=== PATIENT | female | born 1990 | race African-American/Black ===

== ENCOUNTER → 2016-03-02 | Outpatient (CLI) | payer MEDICAID ==
[~2016-03-02] MED LIST: FERR325T PO; INFL1INJ56 IM; LANC1MIS74; ONETKIT; PREN1TAB20 PO; TETA1INJ6 IM
== END ==
LOC: HPND 08:22
PROVIDERS: ATTEND Family Medicine
DX: O26.849 Uterine size-date discrepancy, unspecified trimester (principal); Z3A.00 Weeks of gestation of pregnancy not specified
CPT/HCPCS: 76816

== ENCOUNTER 2016-05-03 22:25 | Emergency (ER) | payer MEDICAID ==
[~2016-05-03] VITALS: Ht 157.5 cm; Wt 86.0 kg
[~2016-05-03 22:25] MED LIST changes: -FERR325T PO; -INFL1INJ56 IM; -LANC1MIS74; -ONETKIT; -TETA1INJ6 IM
[2016-05-03 23:42] LABS: BLOOD, URINE NEG (NEG); COMMENT (UR) CULT NOT INDICATED; CULTURE IF INDICATED CULT NOT INDICATED; GLUCOSE,URINE NEG (NEG); KETONE, URINE NEG (NEG); MUCUS URINE FEW /lpf (OCC); NITRITE,URINE NEG (NEG); PH, URINE 6.5 (5.0-8.5); SQUAMOUS EPITHELIAL CELL URINE 9 /hpf (0-5); URINE COLOR YELLOW (YELLW/STRAW)
--- NOTE | 2016-05-03 23:44 | PD ---
HPI Chief Complaint Left facial pain, bilateral lower extremity numbness, chest pain Date Seen: May 03, 2016 Time Seen: 23:10 (Irina Grey MD R1) Travel History International Travel<30 Days: No Contact w/Intl Traveler<30Days: No Known Affected Area: No (Irina Grey MD R1) History of Present Illness HPI 26 y/o at 33 weeks gestation presents to the [facility] with a chief complaint of left facial pain, bilateral extremity numbness, chest pain, and shortness of breath of 1.5 hour duration. The pt says that she was doing well until this evening when all these symptoms began. She also vomited small amounts of fluid about 2-3 times around the same time. She thinks that her symptoms are related to Tylenol that she took earlier today. She swallowed about 5 Tylenol tablets but is not sure how many milligrams total. She did see some fluid in her underwear and was concerned that something was wrong with the baby. She has felt occasional contractions but they are not regularly or evenly- spaced. She denies gush of fluid and vaginal bleeding. She endorses positive movement. (Irina Grey MD R1) History Past Medical History Medical History: Denies Significant Hx (Irina Grey MD R1) Past Surgical History Surgical History: No Previous Surgery (Irina Grey MD) Family History Family History: Negative (Irina Grey MD R1) Social History Alcohol Use: No Tobacco Use: No Substance Abuse: No (Irina Grey MD R1) Allergies-Medications (Allergen,Severity, Reaction): Coded Allergies: No Known Allergies (Unverified , 04/23/16) Home Meds Active Scripts W/O Vit A W/ Fe Carbonyl (Citranatal Rx)27-1 Mg Tab1 Tab PO DAILY #30 TAB Ref 5 Prov:Irina Grey MD R1 02/27/16 Review of Systems General / Constitutional: No: Fever, Chills Eyes: Visual changes HENT: No: Headaches Cardiovascular: Chest Pain or Discomfort Respiratory: Short of Breath Neurologic: Weakness (Irina Grey MD R1) Physical Exam Narrative GENERAL: Well-nourished, well-developed patient. SKIN: Warm and dry. HEAD: Normocephalic and atraumatic. EYES: No scleral icterus. No injection or drainage. ENT: No nasal drainage noted. Mucous membranes pink. Airway patent. NECK: Supple, trachea midline. No JVD. CARDIOVASCULAR: Regular rate and rhythm without murmurs, gallops, or rubs. RESPIRATORY: Breath sounds equal bilaterally. No accessory muscle use. BREASTS: Bilateral exam showed no masses , no retractions, no nipple discharge. ABDOMEN/GI: Abdomen soft, non-tender, bowel sounds present, no rebound, no guarding Gravid to 33 weeks size Fundal Height: 33 GENITOURINARY: External Genitalia: intact and normal in appearance Cervix: high and posterior Dilatation: none Effacement: 0% Station: -3 Presentation: cephalic Membranes: intact Uterine Contractions: very few FHT's: Category: 1 Baseline: 150 Reactive: up to 160 Variability: [-] Decels: [-] EXTREMITIES: No cyanosis, minimal edema. BACK: Nontender without obvious deformity. No CVA tenderness. NEUROLOGICAL: Awake and alert. Motor and sensory grossly within normal limits. Five out of 5 muscle strength in all muscle groups. Normal speech. (Irina Grey MD R1) Data Data Vital Signs Reviewed: Yes (Irina Grey MD R1) [facility] Medical Record Reviewed: Yes Interpretation(s) 26 y/o F at 33 weeks gestation presents with chest pain, left facial pain, BLE numbness, and shortness of breath. Plan Intrauterine - heart tones reassuring -No contractions on monitor -Monitored for at least 20 minutes -Amniosure negative -Urinalysis negative for infection, 30 protein -Oral hydration (Irina Grey MD R1) Condition: Stable Addendum Remarks This 26-year-old at 33 weeks most of her problems arise from pain in her mouth she had some numbness on that side of her face associated with that pain She has no obstetric problems other than possible leaking of fluid amnisure is negative No gumaro contractions baby is active Is a category 1 tracing Patient being sent to the emergency room for further evaluation (Kriss Ng MD) Irina Grey MD R1 May 03, 2016 23:44 Kriss Ng MD May 04, 2016 00:32
[2016-05-04 00:44] VITALS: BP 115/56; PULSE 68; RESP 16; TEMP 98.5; O2SAT 100
--- NOTE | 2016-05-04 01:02 | PD ---
HPI Chief Complaint: Medical Clearance Time Seen by Provider: 01:01 Travel History International Travel<30 days: No Contact w/Intl Traveler<30days: No Traveled to known affect area: No History of Present Illness HPI 26-year-old female who is 33 weeks A0 was sent from labor and delivery for chest pain. Patient says that after they finished assessing at labor and delivery she started getting substernal chest pain. It lasted for 10- 15 minutes. It was sharp in nature like needle pricks. No radiation. Right now the pain is completely gone. However they wanted her to be checked in the ER medically. Patient is otherwise a healthy person. She is not a smoker. She says she does have family history of heart disease in the form of congestive heart failure but they're all in people who are older age. Vital signs were stable. Currently she is pain-free. No history of cough, fever or any aggravating or relieving factors. PFSH Past Medical History Narrative Medical List of her past medical, surgical, social and family history was reviewed from the nursing note. Medical History: Denies Significant Hx Diminished Hearing: No Tetanus Vaccination: < 5 Years Influenza Vaccination: Yes ?: LMP: 33 WKS : 1 Past Surgical History Surgical History: No Previous Surgery Family History Family History: Negative Social History Alcohol Use: No Tobacco Use: No Substance Use: Yes (MARIJUANA OCCASIONALLY) Allergies-Medications (Allergen,Severity, Reaction): Coded Allergies: No Known Allergies (Unverified , 05/07/16) Comments No known drug allergies. Reported Meds & Prescriptions Reported Meds & Active Scripts Active Citranatal Rx ( W/O Vit A W/ Fe Carbonyl) 27-1 Mg Tab 1 Tab PO DAILY Narrative Medication List of her home medications reviewed from the nursing note. Review of Systems Except as stated in HPI: all other systems reviewed are Neg Physical Exam Narrative GENERAL: Awake, alert, no obvious distress SKIN: Warm and dry. HEAD: Atraumatic. Normocephalic. EYES: Pupils equal and round. No scleral icterus. No injection or drainage. ENT: No nasal bleeding or discharge. Mucous membranes pink and moist. NECK: Trachea midline. No JVD. CARDIOVASCULAR: Regular rate and rhythm. No murmur appreciated. RESPIRATORY: No accessory muscle use. Clear to auscultation. Breath sounds equal bilaterally. Sterile tenderness on palpation GASTROINTESTINAL: Abdomen soft, non-tender, nondistended. Hepatic and splenic margins not palpable. Gravid uterus. MUSCULOSKELETAL: No obvious deformities. No clubbing. No cyanosis. No edema. NEUROLOGICAL: Awake and alert. No obvious cranial nerve deficits. Motor grossly within normal limits. Normal speech. PSYCHIATRIC: Appropriate mood and affect; insight and judgment normal. Data Data Last Documented VS Orders Urinalysis - C+S If Indicated (05/03/16 23:22) Electrocardiogram (05/04/16 ) Labs [facility] Medical Decision Making Medical Screen Exam Complete: Yes Emergency Medical Condition: Yes Medical Record Reviewed: Yes Interpretation(s) Twelve-lead EKG was reviewed by me. Normal sinus rhythm, normal axis, nonspecific ST-T wave changes. Heart rate of 88 bpm. Differential Diagnosis Nonspecific chest pain, costochondritis, chest wall pain Narrative Course 1:16 AM patient is very young with no risk factor for acute coronary syndrome. She is a healthy person. Vital signs are stable. I'm comfortable discharging her home without any other further workup. Procedures EKG Prior to Arrival: No Diagnosis Primary Impression: Nonspecific chest pain Additional Impressions: Qualified Code: Z3A.33 - 33 weeks gestation of Chest wall pain Patient Instructions: General Instructions, Early Labor Signs (ED), Movement (ED), Abdominal Pain in (ED) Departure Forms: Tests/Procedures Additional Instructions: Follow-up with your primary care. Return to the ER if the condition worsens or any other new concerns. Take Tylenol for the pain. Disposition: 01 DISCHARGE HOME Condition: Stable Elida Hernandez MD May 04, 2016 01:02 Urine Leukocyte Esterase NEG Urine RBC 2 /hpf Urine WBC 5 /hpf Urine Squamous Epithelial 9 /hpf Cells Urine Mucus FEW /lpf Microscopic Urinalysis Comment CULT NOT INDICATED [facility] Medical Decision Making Medical Screen Exam Complete: Yes Emergency Medical Condition: Yes Medical Record Reviewed: Yes Interpretation(s) Twelve-lead EKG was reviewed by me. Normal sinus rhythm, normal axis, nonspecific ST-T wave changes. Heart rate of 88 bpm. Differential Diagnosis Nonspecific chest pain, costochondritis, chest wall pain Narrative Course 1:16 AM patient is very young with no risk factor for acute coronary syndrome. She is a healthy person. Vital signs are stable. I'm comfortable discharging her home without any further workup. Procedures EKG Prior to Arrival: No Diagnosis Primary Impression: Nonspecific chest pain Additional Impressions: Qualified Code: Z3A.33 - 33 weeks gestation of Chest wall pain Patient Instructions: General Instructions, Early Labor Signs (ED), Movement (ED), Abdominal Pain in (ED) Departure Forms: Tests/Procedures Additional Instructions: Follow-up with your primary care. Return to the ER if the condition worsens or any other new concerns. Take Tylenol for the pain. Disposition: 01 DISCHARGE HOME Condition: Stable Elida Hernandez MD May 04, 2016 01:02
--- NOTE | 2016-05-04 14:54 | EKG ---
Date Performed: 05/04/2016 Time Performed: 01:11:03 PTAGE: 26 years EKG: Sinus rhythm NONSPECIFIC T-WAVE ABNORMALITY BORDERLINE ECG NO PREVIOUS TRACING DOCTOR: Génesis Escamilla Interpretating Date/Time 05/04/2016 14:51:55
[2016-05-07] MEDS ORDERED: TETA1INJ6 IM (11:00)
[2016-05-14] MEDS ORDERED: FERR325T PO (13:36)
[2016-05-28] MEDS ORDERED: FERR325T PO (12:14)
[2016-06-07] MEDS ORDERED: LANC1MIS74 (11:04)
[2016-06-07] MEDS ORDERED: ONETKIT (11:04)
== END 2016-05-04 01:28 | disposition home or self-care (01) ==
LOC: HOBED 22:25 → NEPE 05-04 01:28
DX: O26.93 Pregnancy related conditions, unspecified, third trimester (principal); R07.9 Chest pain, unspecified; R20.0 Anesthesia of skin; R51 Headache; R11.10 Vomiting, unspecified; Z3A.33 33 weeks gestation of pregnancy
CPT/HCPCS: 81001; 84112; 93005

== ENCOUNTER → 2016-06-01 | Outpatient (CLI) | payer MEDICAID ==
[~2016-06-01] MED LIST changes: +FERR325T PO; +LANC1MIS74; +ONETKIT
== END ==
LOC: CDED 10:04
PROVIDERS: ATTEND Family Medicine
DX: O24.419 Gestational diabetes mellitus in pregnancy, unspecified control (principal)
CPT/HCPCS: 97802